=== PATIENT | female | born 2000 | race Caucasian/White ===

== ENCOUNTER 2022-04-27 20:02 | Inpatient (IN) ==
[2022-04-27] MEDS ORDERED: ACETAMINOPHEN 500 MG TAB ONE (20:16)
[2022-04-27] MEDS ORDERED: ACETAMINOPHEN 500 MG TAB PO STA (20:20)
[2022-04-27] MEDS ORDERED: KETOROLAC TROMETHAMINE 15 MG/ML VIAL IV STA (22:51)
[2022-04-27] MEDS ORDERED: SODIUM CHLORIDE 0.9% 1000ML 2,000 ML IV ONE (22:51)
[2022-04-27] MEDS ORDERED: CEFEPIME 2,000 MG/20 ML VIAL IV STA (22:53)
[2022-04-27 22:55] LABS: Basophils # (auto) 0.05 K/uL (0-0.2); Basophils % (auto) 0.4 %; Hematocrit (blood only) 41.6 % (34.1-44.9); Immature Granulocytes # (auto) 0.04 K/uL (0.00-0.02); Immature Granulocytes % (auto) 0.3 %; Lymphocytes # (auto) 2.02 K/uL (1.2-3.4); Lymphocytes % (auto) 16.6 %; Mean Corpuscular Hgb Conc 33.7 g/dL (32.0-36.0); Mean Corpuscular Volume 92.2 fL (80.0-100.0); Mean Platelet Volume 9.7 fL (9.4-12.3); Monocytes # (auto) 1.04 K/uL (0.24-0.82); Monocytes % (auto) 8.6 %; Neutrophils # (auto) 9.01 K/uL (1.4-6.5); Neutrophils % (auto) 74.1 %; Platelet Count 244 K/uL (130-400); RDW Coefficient of Variation 12.4 % (11.5-14.5); Red Blood Count 4.51 M/uL (3.93-5.22); White Blood Count 12.16 K/ul (4.8-10.8)
[2022-04-27 23:13] LABS: Albumin Globulin Ratio 1.4 (0.9-2); Albumin Level 4.6 gm/dl (3.4-5.0); BUN Creatinine Ratio 13.7 (10-20); Calcium 9.2 mg/dl (8.5-10.1); Est GFR (African American) 136.5 ml/min; Est GFR (Non-African American) 117.7 ml/min; Globulin 3.2 gm/dl (2.5-4.0); Potassium 3.5 mmol/L (3.5-5.1); Total Protein 7.8 gm/dl (6.0-8.3)
[2022-04-27] MEDS ORDERED: DAPTOmycin 300 MG in SYRINGE 0 ML IV SCH (23:15)
[2022-04-27] MEDS ORDERED: metroNIDAZOLE 500 MG/100 ML BAG IV STA (23:32)
[2022-04-28] MEDS ORDERED: OPTIRAY 320 100ml IV ONE (00:15)
--- NOTE | 2022-04-28 00:24 | CT Scan Report ---
CT SCAN OF THE CHEST WITH IV CONTRAST CLINICAL HISTORY: Cellulitis of the left breast. COMPARISON STUDY: Chest x-ray dated 11/10/2006. TECHNIQUE: Following the IV administration of 94 cc of Optiray 320, CT scan of the thorax was perform ed from the thoracic inlet to the upper abdomen. Images are reviewed in the axial, sagittal, and aracelis nal planes. IV contrast was administered without complication. A dose lowering technique was utilize d adhering to the principles of ALARA. CT DOSE: 171.47 mGy.cm FINDINGS: Thyroid: Imaged portions of the thyroid gland are normal in size and attenuation. Thoracic aorta: The thoracic aorta is normal in caliber and demonstrates standard 3-vessel arch anato my. No dissection is seen. Pulmonary vasculature: The pulmonary trunk is normal in caliber. There are no filling defects identif ied in the central pulmonary vessels to indicate pulmonary embolus. Note that this examination was no t protocoled for evaluation of the pulmonary arteries. Heart: The heart is normal in size and without pericardial effusion. Lungs and pleural spaces: The lungs and pleural spaces are clear noting dependent atelectasis. The tr achea and central airways are patent. Mediastinum: There is no mediastinal lymphadenopathy. Katlin: Clear. Axillae: Prominent left axillary lymph nodes measure up to 1.7 cm in length. These are likely reactiv e. No right axillary adenopathy is seen. Upper abdomen: Hepatic periportal edema is noted and likely related to hydration status. Partially vi sualized upper abdominal viscera is otherwise within normal limits. Skeletal structures: No lytic or blastic bony lesions are seen. An os acromiale he is incidentally no tori on the left. Soft tissues: There is dermal thickening and subcutaneous inflammation/fluid seen in the upper left b reast typical for cellulitis. No organized/drainable fluid collection is seen within the abscess. IMPRESSION: 1. Findings are consistent with cellulitis of the left breast as per the clinical history. Clinical f ollow-up to resolution is recommended. If this fails to resolve over a reasonable time course conside r outpatient follow-up at the diagnostic breast center for further evaluation. 2. No organized/drainable fluid collection is seen to indicate abscess. 3. Mildly enlarged left axillary lymph nodes are likely reactive. 4. The lungs are clear. ACT 112: Negative or not required by law. Electronically signed by: Jonnie Sesay M.D. 04/28/2022 12:22 AM
[2022-04-28 00:25] LABS: Pregnancy Test, Serum Negative (Negative)
[2022-04-28 00:44] LABS: Procalcitonin 0.06 ng/ml (0-0.5)
--- NOTE | 2022-04-28 01:39 | Emergency Department Note ---
Impression & Plan Cellulitis of left breast, Sepsis, Fever ED Provider Note NAME: JUVENTINO HOLLOWAY AGE: 21 SEX: F ARRIVES VIA: Walk-In INFORMANT: Patient ED PROVIDER(S): Sunny Darling MD CHIEF COMPLAINT: Fevers, skin infection PLAN: Disposition: Admit MEDICAL DECISION MAKING: The patient is a pleasant 21-year-old woman, previously healthy who presents to the emergency department for evaluation of worsening redness, pain and the development of fevers and body aches after being seen in the emergency department yesterday for cellulitis of her left breast treated with doxycycline. Patient reports she initially had some soreness and a "pimple" in this region on Saturday and then [place] where thereafter the redness developed and pain ensued. She denies nausea, vomiting. She reports a slight sore throat but denies any cough. She denies any chest pain or shortness of breath. Any prior history of skin infections. On arrival the patient is uncomfortable, febrile to 38.9, heart rate in the 90s and vital signs otherwise stable. She appears clinically dry. She has a 10 cm region of erythema, induration, warmth and tenderness of the superior lateral aspect of the left breast with scant central crusting without overt purulent drainage no overt underlying fluctuance. There is no tender axillary lymphadenopathy. Limited bedside ultrasound was performed per procedure note below and did not demonstrate overt fluid collection. WBC 12K, nonspecific. H/H and platelets within normal limits. Chemistry without metabolic acidosis. Lactic acid 0.8, within normal limits. LFTs without significant abnormality. Procalcitonin is not significantly elevated. COVID-19, RNA, ESPERANZA test was negative. CT of the chest was performed to exclude deep infection and demonstrates infection limited to the breast. The patient was treated with broad-spectrum antibiotics given the rapid worsening of her infection with systemic involvement of fevers concern for polymicrobial infection and sepsis. Given her worsening symptoms the patient and her mother at the bedside agree with plan for admission for further management. Case was discussed with Dr. Gutiérrez, [facility] hospitalist, who will evaluate the patient for admission. Triage Nursing notes reviewed and agree them. Prior medical records reviewed Vital Signs: reviewed and remarkable for fever. Differential diagnosis: Sepsis, UTI, pneumonia, metabolic, electrolyte abnormalities, cardiac sources, intracerebral event, toxicologic, neurologic, as well as other pathologies. ER treatment provided: See below. Diagnostics interpreted by me: Cardiac Monitoring: An order for continuous cardiac monitoring was placed and demonstrated normal sinus rhythm, 95 bpm, no ectopy. Laboratory studies: See below Imaging studies: See below Consultation(s): Case was discussed with Dr. Gutiérrez, [facility] hospitalist, who will evaluate the patient for admission. HPI: The patient is a pleasant 21-year-old woman, previously healthy who presents to the emergency department for evaluation of worsening redness, pain and the development of fevers and body aches after being seen in the emergency department yesterday for cellulitis of her left breast treated with doxycycline. Patient reports she initially had some soreness and a "pimple" in this region on Saturday and then [place] on [place] where thereafter the redness developed and pain ensued. She denies nausea, vomiting. She reports a slight sore throat but denies any cough. She denies any chest pain or shortness of breath. Any prior history of skin infections. ROS: See above HPI for pertinent positives & negatives. A total of 10 systems reviewed and were otherwise negative. VITALS:See Below PHYSICAL EXAMINATION: GENERAL: Awake, alert, uncomfortable-appearing, in no distress HENT: Normocephalic, atraumatic. Oropharynx with dry mucous membranes and otherwise unremarkable. EYES: Normal conjunctiva. Sclera non-icteric. NECK: Supple. No nuchal rigidity. FROM. No JVD. RESPIRATORY: Clear to auscultation. CARDIAC: Regular rate, normal rhythm. Extremities warm and well perfused. Pulses equal. ABDOMEN: Soft, non-distended. No tenderness to palpation. No rebound or guar ding. No masses. RECTAL: Deferred. MUSCULOSKELETAL: Chest examination reveals no tenderness. The back is symmetrical on inspection without obvious abnormality. There is no CVA tenderness to palpation. No joint edema. LOWER EXTREMITIES: Calves are equal size bilaterally and non-tender. No edema. No discoloration. NEURO: Normal sensorium. No sensory or motor deficits noted. SKIN: 10 cm region of erythema, induration, warmth and tenderness of the superior lateral aspect of the left breast with scant central crusting without overt purulent drainage no overt underlying fluctuance. There is no tender axillary lymphadenopathy. No jaundice noted. ED COURSE: Procedures: Limited Point of Care Soft Tissue Ultrasound performed by me: Indication: Cellulitis, fluctuance. Findings: Limited soft tissue ultrasound with long and short axis views obtained. There is no overt fluid collection identified. Cobblestoning is noted c/w cellulitis. Impression: Cellulitis, no abscess. ---- Critical Care: I have personally spent greater than 45 minutes of critical care time in the direct management of this patient. This includes bedside care, interpretation of diagnostic studies, and testing, discussion with consultants, patient, and family members, and other required patient management activities. This 45 minutes is in excess of all separately billable procedures. Sunny Darling MD Past Med/Surg History Medical History No significant past medical history Surgical History No significant past surgical history Social History Smoking Status: Current some day smoker Tobacco Type: Cigarettes Preferred Language: Samoan marital status: Single current occupational status: employed Feels Safe at Home: Yes Allergies Allergies Allergy/AdvReac Type Severity Reaction Status Date / Time Penicillins AdvReac Intermediate ELEVATED Verified 04/27/22 23:26 HEART RATE PER MOTHER Home Meds Previous Rx's Medication Instructions Recorded doxycycline hyclate 100 mg capsule 100 mg PO BID 10 days #20 caps 04/27/22 Results & Data (ED) Vital Signs Vital Signs - 24 hr 04/27/22 20:14 04/27/22 23:17 04/28/22 00:18 Temperature 38.9 C H Temperature Source Temporal Artery Scan Pulse Rate 107 H Pulse Rate [Radial] 87 95 H Pulse Rhythm [Radial] Regular Regular Pulse Strength [Radial] Normal Normal Respiratory Rate 18 16 16 Respiratory Effort / Characteristics Non-Labored Spontaneous Non-Labored Spontaneous Respiratory Depth Normal Normal Respiratory Pattern Regular Regular Blood Pressure 131/76 Blood Pressure [Left Arm] 111/75 124/81 Blood Pressure Mean 94 Blood Pressure Mean [Left Arm] 87 95 Blood Pressure Position Sitting Blood Pressure Position [Left Arm] Lying Sitting Pulse Oximetry 98 100 97 Oxygen Delivery Method Room Air Room Air Room Air Sepsis Recent Fever Within 48 Hours Yes Sepsis New/Unexplained Change in Mental Status N/A Sepsis Action Taken by Nursing No Action Required Laboratory Data Attestation: I reviewed the patient's lab results. Result diagrams: 04/27/22 22:45 04/27/22 22:45 Lab Results 04/27/22 04/27/22 04/27/22 Range/Units 22:45 22:45 22:45 WBC 12.16 H (4.8-10.8) K/ul RBC 4.51 (3.93-5.22) M/uL Hgb 14.0 (12.0-16.0) g/dl Hct 41.6 (34.1-44.9) % MCV 92.2 (80.0-100.0) fL MCH 31.0 (25.0-34.0) pg MCHC 33.7 (32.0-36.0) g/dL RDW Std Deviation 42.0 (36.4-46.3) fL RDW Coeff of Krish 12.4 (11.5-14.5) % Plt Count 244 (130-400) K/uL MPV 9.7 (9.4-12.3) fL Immature Gran % (Auto) 0.3 % Neut % (Auto) 74.1 % Lymph % (Auto) 16.6 % Todd % (Auto) 8.6 % Eos % (Auto) 0.0 % Baso % (Auto) 0.4 % Neut # (Auto) 9.01 H (1.4-6.5) K/uL Lymph # (Auto) 2.02 (1.2-3.4) K/uL Todd # (Auto) 1.04 H (0.24-0.82) K/uL Eos # (Auto) 0.00 (0-0.50) K/uL Baso # (Auto) 0.05 (0-0.2) K/uL Immature Gran # (Auto) 0.04 H (0.00-0.02) K/uL Sodium 136 (136-145) mmol/L Potassium 3.5 (3.5-5.1) mmol/L Chloride 101 (98-107) mmol/L Carbon Dioxide 25 (21-32) mmol/L Anion Gap 10 (3-11) BUN 10 (6-23) mg/dl Creatinine 0.73 (0.6-1.2) mg/dl Est Cr Clr Drug Dosing 92.0 ml/min Est GFR ( Amer) 136.5 ml/min Est GFR (Non-Af Amer) 117.7 ml/min BUN/Creatinine Ratio 13.7 (10-20) Glucose 94 (70-99(Fasting)) mg/dl Lactate 0.8 (0.4-2.0) mmol/L Calcium 9.2 (8.5-10.1) mg/dl Total Bilirubin 1.0 (0.2-1.0) mg/dl AST 27 (13-39) U/L ALT 15 (7-52) U/L Alkaline Phosphatase 87 (34-104) U/L Total Protein 7.8 (6.0-8.3) gm/dl Albumin 4.6 (3.4-5.0) gm/dl Globulin 3.2 (2.5-4.0) gm/dl Albumin/Globulin Ratio 1.4 (0.9-2) Procalcitonin (0-0.5) ng/ml HCG, Qual (Negative) SARS-CoV-2, RNA, NAAT (NEGATIVE) 04/27/22 04/27/22 Range/Units 22:45 22:45 WBC (4.8-10.8) K/ul RBC (3.93-5.22) M/uL Hgb (12.0-16.0) g/dl Hct (34.1-44.9) % MCV (80.0-100.0) fL MCH (25.0-34.0) pg MCHC (32.0-36.0) g/dL RDW Std Deviation (36.4-46.3) fL RDW Coeff of Krish (11.5-14.5) % Plt Count (130-400) K/uL MPV (9.4-12.3) fL Immature Gran % (Auto) % Neut % (Auto) % Lymph % (Auto) % Todd % (Auto) % Eos % (Auto) % Baso % (Auto) % Neut # (Auto) (1.4-6.5) K/uL Lymph # (Auto) (1.2-3.4) K/uL Todd # (Auto) (0.24-0.82) K/uL Eos # (Auto) (0-0.50) K/uL Baso # (Auto) (0-0.2) K/uL Immature Gran # (Auto) (0.00-0.02) K/uL Sodium (136-145) mmol/L Potassium (3.5-5.1) mmol/L Chloride (98-107) mmol/L Carbon Dioxide (21-32) mmol/L Anion Gap (3-11) BUN (6-23) mg/dl Creatinine (0.6-1.2) mg/dl Est Cr Clr Drug Dosing ml/min Est GFR ( Amer) ml/min Est GFR (Non-Af Amer) ml/min BUN/Creatinine Ratio (10-20) Glucose (70-99(Fasting)) mg/dl Lactate (0.4-2.0) mmol/L Calcium (8.5-10.1) mg/dl Total Bilirubin (0.2-1.0) mg/dl AST (13-39) U/L ALT (7-52) U/L Alkaline Phosphatase (34-104) U/L Total Protein (6.0-8.3) gm/dl Albumin (3.4-5.0) gm/dl Globulin (2.5-4.0) gm/dl Albumin/Globulin Ratio (0.9-2) Procalcitonin 0.06 (0-0.5) ng/ml HCG, Qual Negative (Negative) SARS-CoV-2, RNA, NAAT NEGATIVE (NEGATIVE) Administered Medications Discontinued Medications Acetaminophen (Acetaminophen 500 Mg Tab) Confirm Administered Dose 1,000 mg .ROUTE .STK-MED ONE Stop: 04/27/22 20:17 Last Admin: 04/27/22 20:23 Dose: Not Given Documented By: NIGEL Acetaminophen (Acetaminophen 500 Mg Tab) 1,000 mg PO NOW STA Stop: 04/27/22 20:21 Last Admin: 04/27/22 20:23 Dose: 1,000 mg Documented By: NIGEL Sodium Chloride (Nss 1000ml) 2,000 mls @ 999 mls/hr IV .Q2H1M ONE Stop: 04/28/22 00:51 Last Infusion: 04/28/22 01:49 Dose: 0 mls/hr Documented By: Admin: 04/27/22 23:13 Dose: 999 mls/hr Documented By: PARVEEN Cefepime HCl (Maxipime) 2,000 mg in 20 mls @ 5 mls/min IV NOW STA; Protocol Stop: 04/27/22 22:56 Last Admin: 04/27/22 23:13 Dose: 5 mls/min Documented By: PARVEEN Daptomycin 300 mg/ Syringe 6 mls @ 3 mls/min IV Q24H HEATHER; Protocol Stop: 04/29/22 23:14 Last Admin: 04/27/22 23:49 Dose: 3 mls/min Documented By: PARVEEN Metronidazole (Flagyl) 500 mg in 100 mls @ 100 mls/hr IV NOW STA Stop: 04/28/22 00:31 Last Infusion: 04/28/22 02:43 Dose: 0 mls/hr Documented By: Admin: 04/28/22 01:21 Dose: 100 mls/hr Documented By: PARVEEN Ioversol (Optiray 320 100ml) 94 ml IV ONCE ONE Stop: 04/28/22 00:16 Last Admin: 04/28/22 00:15 Dose: 94 ml Documented By: SHAHAB Ketorolac Tromethamine (Ketorolac Tromethamine 15 Mg/Ml Vial) 15 mg IV NOW STA Stop: 04/27/22 22:52 Last Admin: 04/27/22 23:13 Dose: 15 mg Documented By: PARVEEN Imaging Data Radiologist's Impression: Chest CT 04/27/22 23:30 CT SCAN OF THE CHEST WITH IV CONTRAST CLINICAL HISTORY: Cellulitis of the left breast. COMPARISON STUDY: Chest x-ray dated 11/10/2006. TECHNIQUE: Following the IV administration of 94 cc of Optiray 320, CT scan of the thorax was performed from the thoracic inlet to the upper abdomen. Images are reviewed in the axial, sagittal, and coronal planes. IV contrast was administered without complication. A dose lowering technique was utilized adhering to the principles of ALARA. CT DOSE: 171.47 mGy.cm FINDINGS: Thyroid: Imaged portions of the thyroid gland are normal in size and attenuation. Thoracic aorta: The thoracic aorta is normal in caliber and demonstrates standard 3-vessel arch anatomy. No dissection is seen. Pulmonary vasculature: The pulmonary trunk is normal in caliber. There are no filling defects identified in the central pulmonary vessels to indicate pulmonary embolus. Note that this examination was not protocoled for evaluation of the pulmonary arteries. Heart: The heart is normal in size and without pericardial effusion. Lungs and pleural spaces: The lungs and pleural spaces are clear noting dependent atelectasis. The trachea and central airways are patent. Mediastinum: There is no mediastinal lymphadenopathy. Katlin: Clear. Axillae: Prominent left axillary lymph nodes measure up to 1.7 cm in length. These are likely reactive. No right axillary adenopathy is seen. Upper abdomen: Hepatic periportal edema is noted and likely related to hydration status. Partially visualized upper abdominal viscera is otherwise within normal limits. Skeletal structures: No lytic or blastic bony lesions are seen. An os acromiale he is incidentally noted on the left. Soft tissues: There is dermal thickening and subcutaneous inflammation/fluid seen in the upper left breast typical for cellulitis. No organized/drainable fluid collection is seen within the abscess. IMPRESSION: 1. Findings are consistent with cellulitis of the left breast as per the clinical history. Clinical follow-up to resolution is recommended. If this fails to resolve over a reasonable time course consider outpatient follow-up at the diagnostic breast center for further evaluation. 2. No organized/drainable fluid collection is seen to indicate abscess. 3. Mildly enlarged left axillary lymph nodes are likely reactive. 4. The lungs are clear. ACT 112: Negative or not required by law. Electronically signed by: Jonnie Sesay M.D. 04/28/2022 12:22 AM Discharge Plan Visit Data Chief Complaint: Infection, Wound Stated Complaint: BITE WITH POSSIBLE INFECTION ED Provider: Sunny Darling Discharge Problem: Cellulitis of left breast, Sepsis, Fever Patient Disposition: Admitted As Inpatient Discharge Instructions Interventions: ED Discharge Assessment Last Done: 04/28/22 04:38
[2022-04-28] MEDS ORDERED: ACETAMINOPHEN 325 MG TAB PO PRN (05:09)
[2022-04-28] MEDS ORDERED: ONDANSETRON INJ 2 MG/ML 2 ML VIAL IV PRN (05:09)
[2022-04-28] MEDS ORDERED: KETOROLAC TROMETHAMINE 15 MG/ML VIAL IV PRN (05:09)
[2022-04-28] MEDS ORDERED: SODIUM CHLORIDE 0.45 % 1,000 ML IV SCH (05:09)
[2022-04-28] MEDS ORDERED: POLYETHYLENE (MIRALAX) 17 GM PACK PO PRN (05:09)
[2022-04-28] MEDS ORDERED: cefTRIAXone SODIUM 2,000 MG in DEXTROSE 5% 50 ML IV SCH (06:00)
[2022-04-28] MEDS: DOXYCYCLINE HYCLATE 100 MG in DEXTROSE 5% 100 ML IV SCH ×2 (06:06→18:14)
--- NOTE | 2022-04-28 07:17 | History and Physical Report ---
DATE OF ADMISSION: 04/28/2022. CHIEF COMPLAINT: Left chest wall infection. HISTORY OF PRESENT ILLNESS: A 21-year-old female with past medical history significant for depression, generalized anxiety disorder as per Epic, who presents with left chest wall infection. [place]. Yesterday, she came to the ER with left upper chest wall infection and discharged on doxycycline. After going home, she was having fever, pain got worse, and symptoms seemed to be getting worse, so she came back. She was spiking temperatures at 38.9 in the ER and white count was 12. In the ER, she was treated with cefepime, daptomycin, and Flagyl. Currently, resting comfortably and hemodynamically stable. Denies any headache. She has whole body aches, feeling weak. Denies any headache. No blurred visions, no runny nose, no sore throat, no cough, no shortness of breath, no nausea, no abdominal pain. Normal bowel and bladder movements. No rash anywhere else.Patient and her mother says initially it started as blisters. ALLERGIES: PENICILLINS. PAST MEDICAL HISTORY: As mentioned above. PAST SURGICAL HISTORY: EGDs, EGD with biopsy, tonsillectomy and adenoidectomy. MEDICATIONS: The patient is currently taking doxycycline 100 mg p.o. b.i.d. FAMILY HISTORY: Significant for father has cholecystectomy, GERD, hypertension; mother has lactose intolerance, gallbladder removed; maternal grandmother had GERD; paternal grandfather had GERD; paternal grandmother has diabetes. SOCIAL HISTORY: Single. No smoking, no alcohol. Smokes marijuana as per [facility]. REVIEW OF SYSTEMS: As per HPI. Rest of the review of systems is negative. PHYSICAL EXAMINATION: GENERAL: The patient is of moderate build, not in acute distress. VITAL SIGNS: Temperature 38.9, pulse 95, respiratory rate 16, blood pressure 124/81, oxygen 97% on room air. HEENT: Pupils equal, round, and reactive to light. Oral mucosa moist. NECK: No JVD, no neck masses. CARDIOVASCULAR: S1 and S2 heard. Regular rate and rhythm. No murmur, no gallop. RESPIRATORY: Normal AP diameter. No accessory muscle use. No wheezing, no crackles. ABDOMEN: Soft, bowel sounds present, nontender, no distention. CENTRAL NERVOUS SYSTEM: Cranial nerves II-XII grossly intact, nonfocal. EXTREMITIES: No edema, no erythema. SKIN: Erythematous some crusted lesions seen in the left upper chest just above breast and close to axilla region. LABORATORY DATA: WBC 12.1, hemoglobin 14, hematocrit 41.6, platelets 244. Sodium 136, potassium 3.5, chloride 101, bicarbonate 25, BUN 10, creatinine 0.7, serum glucose 94, lactate 0.8, calcium 9.2, total bilirubin 1, AST 27, ALT 15, alkaline phosphatase 87. Procalcitonin 0.06. HCG qualitative is negative. SARS-CoV-2 rapid test negative. IMAGING DATA: CT of the chest with IV contrast shows findings consistent with cellulitis of the left breast, clinical followup to resolution is recommended. If this fails to resolve over a reasonable time course, will consider outpatient followup at [facility] for further evaluation. No organized drainable fluid collection is seen to indicate abscess. Mildly enlarged left axillary lymph nodes, are likely reactive. Lungs are clear. ASSESSMENT AND PLAN: This is a 21-year-old female who presents with left upper chest wall cellulitis. 1. Left upper chest wall cellulitis: There is no drainable abscess seen on ct scan. Will continue with rocephin and doxycycline. Follow the response. If needed can add anaerobic coverage. Will monitor in the medical floor. Gentle fluids, IV Toradol p.r.n. for pain. 2. Deep venous thrombosis prophylaxis: Sequential compression devices. Expect to discharge home and follow with family doctor. Job ID: [id number] MTDD
[2022-04-28 07:24] LABS: Basophils # (auto) 0.03 K/uL (0-0.2); Basophils % (auto) 0.3 %; Eosinophils # (auto) 0.02 K/uL (0-0.50); Eosinophils % (auto) 0.2 %; Hematocrit (blood only) 36.3 % (34.1-44.9); Hemoglobin 12.2 g/dl (12.0-16.0); Immature Granulocytes # (auto) 0.04 K/uL (0.00-0.02); Immature Granulocytes % (auto) 0.4 %; Lymphocytes # (auto) 1.61 K/uL (1.2-3.4); Lymphocytes % (auto) 16.9 %; Mean Corpuscular Hemoglobin 30.7 pg (25.0-34.0); Mean Corpuscular Hgb Conc 33.6 g/dL (32.0-36.0); Mean Corpuscular Volume 91.2 fL (80.0-100.0); Mean Platelet Volume 9.8 fL (9.4-12.3); Monocytes # (auto) 0.78 K/uL (0.24-0.82); Monocytes % (auto) 8.2 %; Neutrophils # (auto) 7.04 K/uL (1.4-6.5); Platelet Count 185 K/uL (130-400); RDW Coefficient of Variation 12.6 % (11.5-14.5); RDW Standard Deviation 41.6 fL (36.4-46.3); Red Blood Count 3.98 M/uL (3.93-5.22); White Blood Count 9.52 K/ul (4.8-10.8)
[2022-04-28 07:45] LABS: Anion Gap 6 (3-11); BUN Creatinine Ratio 14.3 (10-20); Blood Urea Nitrogen 8 mg/dl (6-23); Calcium 7.9 mg/dl (8.5-10.1); Carbon Dioxide 24 mmol/L (21-32); Chloride 107 mmol/L (98-107); Creatinine Clr Calc Pharmacy 119.9 ml/min; Est GFR (African American) > 150.0 ml/min; Est GFR (Non-African American) 133.3 ml/min; Glucose 96 mg/dl (70-99(Fasting)); Magnesium 1.9 mg/dl (1.7-2.4); Potassium 3.4 mmol/L (3.5-5.1); Sodium 137 mmol/L (136-145)
[2022-04-28] MEDS ORDERED: POTASSIUM CHLORIDE CRTAB 20 MEQ TABCR PO STA (08:45)
[2022-04-28] MEDS: ADVANCED PROBIOTIC 1250 MG CAPSULE PO SCH ×2 (09:06→22:16)
[2022-04-28] MEDS: PIPERACILLIN/TAZOBACTAM 3.375 GM in DEXTROSE 5% 100 ML IV SCH ×2 (15:06→22:16)
[2022-04-28 15:47] LABS: Lyme Ab IgG w/WB Rflx Negative (Negative)
[2022-04-28 15:48] LABS: Lyme Ab IgM w/WB Rflx Equivocal (Negative)
[2022-04-28] MEDS ORDERED: bisacodyL 5 MG TABEC PO PRN (15:54)
--- NOTE | 2022-04-28 16:23 | Communication Note ---
Date of Service: April 28, 2022 Patient was seen and examined in her room 306. Chart reviewed. Mom was present at bedside. Will discontinue ceftriaxone and start zosyn. Send for tick borne panel and continue doxycyline pending studies. Likely can de-escalate to oral antibiotics tomorrow and discharge home.
[2022-04-29] MEDS: DOXYCYCLINE HYCLATE 100 MG in DEXTROSE 5% 100 ML IV SCH (05:46)
[2022-04-29 06:58] LABS: Anion Gap 7 (3-11); BUN Creatinine Ratio 13.8 (10-20); Blood Urea Nitrogen 8 mg/dl (6-23); Carbon Dioxide 30 mmol/L (21-32); Chloride 101 mmol/L (98-107); Creatinine Clr Calc Pharmacy 115.8 ml/min; Est GFR (African American) > 150.0 ml/min; Est GFR (Non-African American) 131.8 ml/min; Glucose 112 mg/dl (70-99(Fasting)); Potassium 3.7 mmol/L (3.5-5.1); Sodium 138 mmol/L (136-145)
[2022-04-29 06:59] LABS: Basophils # (auto) 0.03 K/uL (0-0.2); Basophils % (auto) 0.4 %; Eosinophils # (auto) 0.11 K/uL (0-0.50); Eosinophils % (auto) 1.5 %; Hematocrit (blood only) 38.8 % (34.1-44.9); Immature Granulocytes # (auto) 0.02 K/uL (0.00-0.02); Immature Granulocytes % (auto) 0.3 %; Lymphocytes # (auto) 1.97 K/uL (1.2-3.4); Lymphocytes % (auto) 27.4 %; Mean Corpuscular Hemoglobin 30.8 pg (25.0-34.0); Mean Corpuscular Hgb Conc 33.5 g/dL (32.0-36.0); Mean Corpuscular Volume 91.9 fL (80.0-100.0); Mean Platelet Volume 9.9 fL (9.4-12.3); Monocytes % (auto) 12.5 %; Neutrophils # (auto) 4.16 K/uL (1.4-6.5); Neutrophils % (auto) 57.9 %; Platelet Count 235 K/uL (130-400); RDW Coefficient of Variation 12.5 % (11.5-14.5); RDW Standard Deviation 42.3 fL (36.4-46.3); Red Blood Count 4.22 M/uL (3.93-5.22); White Blood Count 7.19 K/ul (4.8-10.8)
[2022-04-29] MEDS: PIPERACILLIN/TAZOBACTAM 3.375 GM in DEXTROSE 5% 100 ML IV SCH (07:57)
[2022-04-29] MEDS: ADVANCED PROBIOTIC 1250 MG CAPSULE PO SCH (07:58)
--- NOTE | 2022-04-29 12:19 | Discharge Summary ---
Date of Service April 29, 2022 Admission HPI Per Admitting Provider A 21-year-old female with past medical history significant for depression, generalized anxiety disorder as per [facility], who presents with left chest wall infection. The patient was swimming in the river on Saturday. Yesterday, she came to the ER with left upper chest wall infection and discharged on doxycycline. After going home, she was having fever, pain got worse, and symptoms seemed to be getting worse, so she came back. She was spiking temperatures at 38.9 in the ER and white count was 12. In the ER, she was treated with cefepime, daptomycin, and Flagyl. Currently, resting comfortably and hemodynamically stable. Denies any headache. She has whole body aches, feeling weak. Denies any headache. No blurred visions, no runny nose, no sore throat, no cough, no shortness of breath, no nausea, no abdominal pain. Normal bowel and bladder movements. No rash anywhere else.Patient and her mother says initially it started as blisters. Principal Diagnosis Left chest wall cellulitis Possible lyme disease Sepsis Discharge Exam Feels well. No fever in past 36 hours. Left chest wall redness is receding. Breathing comfortably on room air. Discharge Data Allergies Allergy/AdvReac Type Severity Reaction Status Date / Time Penicillins AdvReac Intermediate ELEVATED Verified 04/27/22 23:26 HEART RATE PER MOTHER Consultations 04/28/22 00:35 ED Decision to Admit Stat Ordered Studies 04/27/22 23:00 US point of care ultrasound Stat 04/27/22 23:30 CT chest diagnostic w con Stat Hospital Course (1) Cellulitis: (2) Sepsis: Plan Ms Malinda Swan is a 21 year old female with no significant PMHx presents to the ER 04/28 with worsening left chest wall redness. She reports first noticing a "bump" on that area about 1 week prior then went swimming [place] and subsequently developed redness. She went to the ER 04/27 and was prescribed doxycyline but with her worsening redness, fever/chills she returned to the ER 04/28 and was admitted. In the ER, she received Daptomycin, Cefepime then was continued on Ceftriaxone and Doxcycline briefly but was switched to Zosyn and Doxycyline. With parenteral antibiotics, her sepsis resolved and her cellulitis improved markedly. Her lyme screen was equivocal so a Western blot was sent which is pending at discharge. Her blood smear was negative for anaplasma and babesia but PCR are pending at discharge. She was discharged on Augmentin x 7 days for cellulitis. And Doxycycline x 14 days for empiric coverage of lyme disease pending Western Blot studies. She and her mother were instructed to follow up with her PCP within the week for results of her lyme western blot and remaining tick borne panel which are pending at discharge. Total Time Total Time Spent Total Time Spent (In Minutes): 38 Discharge Plan Discharge Items Patient Disposition: Home - Self-Care Reason For Visit: LEFT CHEST WALL INFECTION Discharge Diagnosis: Left chest wall cellulitis Possible lyme disease Sepsis Condition on Discharge: Good Activity: Resume your previous activity Non-emergency contact: Primary Care Provider Call non-emergency contact if: you have any medication questions and you have a fever Follow-up/Referrals: Jazmin Ruiz MD [Primary Care Provider] - Diet: Regular Addtl Attending Provider Instructions: Keep the affected area clean and dry. You may apply gauze over the area as needed. No bath, swimming or soaking in water until your skin is completely healed. Showers are ok. You can wash the area with warm water and mild soap. You will go home on Augmentin 875/125mg twice a day for 7 days for your skin infection. You will be on Doxycyline 100mg twice a day for at least 14 days for presumed lyme disease. Please follow up with your primary care doctor in 1 week to monitor your skin infection and for the results of your Lyme Western Blot and Remaining Tick Borne panel (PCR) which are PENDING at time of discharge--> if your remaining Tick Borne Panel and Lyme Western Blot comes back negative, you may stop the doxycyline. Pending Studies at Discharge: Yes Studies:: Lyme Western Blot Tick Borne Panel Stand-Alone Forms: My EyeEm, Smoking Cessation Medications and DC Order Prescriptions: New Advanced Probiotic 625 mg (10 billion cell) Capsule 1 cap PO BID 14 Days Qty: 28 0RF amoxicillin-pot clavulanate 875-125 mg tablet 1 tab PO BID 7 Days Qty: 14 0RF Continued fluvoxamine 100 mg Capsule,Extended Release 24hr 100 mg PO HS Rx Instructions: was to start and didnt yet doxycycline hyclate 100 mg capsule 100 mg PO BID 14 Days Qty: 28 0RF Rx Instructions: STARTED 04/27/22 Discharge Orders: Discharge Order (Routine); Ordered 04/29/22 Ordered By: Cliff Blunt Admission Data Admit Date/Time: 04/28/22 01:45 Attending Provider: Cliff Blunt Admit Provider: Marv Gutiérrez Primary Care Provider: Jazmin Ruiz Other Providers: Marv Gutiérrez
[2022-05-02 00:12] LABS: 18KDIGG Band NON-REACTIVE; 23KDIGG Band NON-REACTIVE; 23KDIGM Band REACTIVE; 28KDIGG Band NON-REACTIVE; 30KDIGG Band NON-REACTIVE; 39KDIGG Band NON-REACTIVE; 39KDIGM Band NON-REACTIVE; 41KDIGG Band REACTIVE; 41KDIGM Band NON-REACTIVE; 45KDIGG Band NON-REACTIVE; 58KDIGG Band NON-REACTIVE; 66KDIGG Band NON-REACTIVE; 93KDIGG Band NON-REACTIVE; Lyme Antibodies, WB IgG NEGATIVE (NEGATIVE); Lyme Antibodies, WB IgM NEGATIVE (NEGATIVE)
== END 2022-04-29 14:02 | disposition home or self-care (01) | DRG 872 ==
LOC: ED 20:02 → 3E 04-28 01:45
DX: F41.1 Generalized anxiety disorder; A41.9 Sepsis, unspecified organism; L03.313 Cellulitis of chest wall; F32.A Depression, unspecified; Z88.0 Allergy status to penicillin; A69.20 Lyme disease, unspecified

== ENCOUNTER 2023-03-07 17:24 | Inpatient (IN) ==
[~2023-03-07 17:24] MED LIST: GENTAMICIN SULFATE 40 MG/ML 2 ML VIAL IV SCH
[2023-03-07] MEDS ORDERED: MoRPHine SULFATE 10 MG/ML CARP/VIAL ONE (17:29)
[2023-03-07] MEDS ORDERED: ceFAZolin 2000MG 2,000 MG/15 ML SYR IV STA (17:30)
[2023-03-07] MEDS ORDERED: MoRPHine SULFATE 10 MG/ML CARP/VIAL IV STA (17:30)
[2023-03-07] MEDS: fentaNYL citrate PF 100 MCG/2 ML VIAL IV PRN ×3 (17:40→18:20)
--- NOTE | 2023-03-07 17:50 | Emergency Department Note ---
Impression & Plan Tibia and fibula open fracture, right ED Provider Note INFORMANT: Patient ED PROVIDER(S): Tello Wynne DO CHIEF COMPLAINT: PLAN: Disposition: OR Outpatient prescription management: none Discussion with: Dr. Chu orthopedics MEDICAL DECISION MAKING: This is a 22-year-old female who presents to the ED via ambulance. The patient was jumping on a trampoline with her boyfriend. He somehow landed on the right leg causing the open fracture. She has a small portion of the tibia that is protruding through the bone. There is a laceration that is approximately 4 cm in length. Minimal bleeding. No significant lamination noted. She is distally neurovascular intact. The patient has no other injuries. This occurred just prior to arrival. An IV was established by nursing staff here. IV morphine as well as IV fentanyl was administered for pain control. She was also given IV Ancef 2 g. I did speak with Dr. You Chu from orthopedics. He will see the patient in the ED for operative repair. CBC did not show concerning anemia or leukocytosis. No kidney dysfunction or electrolyte abnormality. Triage Nursing notes reviewed. Vital Signs: reviewed Prior /Outside records reviewed: none Differential diagnosis: Soft tissue injury, nerve injury, vascular injury, bony injury. Diagnostics, as interpreted by me: 12 lead ECG: none Cardiac Monitoring ordered: none Medical decision rules: none Imaging studies: X-ray of the right tib-fib: Transverse fracture through the tibia and fibula. Procedures: none. Critical care: none. HPI: See MDM above. PAST MEDICAL HISTORY: See Below PAST SURGICAL HISTORY: See Below SOCIAL HISTORY: See Below HOME MEDICATIONS:See Below ALLERGIES: See Below VITALS: See Below PHYSICAL EXAMINATION: See MDM for positive findings otherwise unremarkable. CONSTITUTIONAL/VITAL SIGNS: Reviewed GENERAL:done as appropriate INTEGUMENTARY: done as appropriate HEAD: done as appropriate EYES: done as appropriate RESPIRATORY: done as appropriate CARDIOVASCULAR:done as appropriate GI/ABDOMEN:done as appropriate EXTREMITIES: done as appropriate NEUROLOGICAL: done as appropriate PSYCHIATRIC:done as appropriate MUSCULOSKELETAL:done as appropriate TRIAGE NURSING DOCUMENTATION REVIEWED. Past Med/Surg History Medical History Fever No significant past medical history Sepsis Surgical History No significant past surgical history Social History Smoking Status: Never smoker Tobacco Type: Cigarettes Hx Alcohol Use: Yes Alcohol type: beer, wine, hard liquor and other Hx Substance Use: No Preferred Language: Georgian Communication Ability: Effective Check Examiner Required: No Beliefs That Will Affect Care: None marital status: Single Current Living Situation: Family current occupational status: employed Feels Safe at Home: Yes Assistive Devices: None Allergies Allergies Allergy/AdvReac Type Severity Reaction Status Date / Time Penicillins AdvReac Intermediate ELEVATED Verified 04/27/22 23:26 HEART RATE PER MOTHER Home Meds Home Medications Medication Instructions Recorded Confirmed No Known Home Medications 12/11/22 12/11/22 Results & Data (ED) Vital Signs Vital Signs - 24 hr 03/07/23 17:44 03/07/23 17:58 Temperature 36.6 C Temperature Source Oral Pulse Rate 97 H Pulse Rate [Right Finger] 89 Respiratory Rate 20 20 Respiratory Effort / Characteristics Non-Labored Non-Labored Respiratory Depth Normal Normal Blood Pressure 114/86 Blood Pressure [Right Arm] 138/84 Blood Pressure Mean 95 Blood Pressure Mean [Right Arm] 102 Pulse Oximetry 99 91 Oxygen Delivery Method Room Air Room Air Sepsis Recent Fever Within 48 Hours No Sepsis New/Unexplained Change in Mental Status N/A Sepsis Action Taken by Nursing No Action Required Laboratory Data 03/07/23 17:29 03/07/23 17:29 Lab Results 03/07/23 03/07/23 Range/Units 17:29 18:00 WBC 10.08 (4.8-10.8) K/ul RBC 4.43 (4.20-5.40) M/uL Hgb 13.5 (12.0-16.0) g/dl Hct 40.0 (37.0-47.0) % MCV 90.3 (80.0-100.0) fL MCH 30.5 (25.0-34.0) pg MCHC 33.8 (32.0-36.0) g/dL RDW Std Deviation 42.0 (36.4-46.3) fL RDW Coeff of Krish 12.9 (11.5-14.5) % Plt Count 321 (130-400) K/uL MPV 10.1 (9.4-12.4) fL Immature Gran % (Auto) 0.4 % Neut % (Auto) 44.1 % Lymph % (Auto) 45.0 % [place] % (Auto) 8.8 % Eos % (Auto) 1.2 % Baso % (Auto) 0.5 % Neut # (Auto) 4.44 (1.40-6.50) K/uL Lymph # (Auto) 4.54 H (1.2-3.4) K/uL [place] # (Auto) 0.89 H (0.11-0.59) K/uL Eos # (Auto) 0.12 (0-0.50) K/uL Baso # (Auto) 0.05 (0-0.2) K/uL Immature Gran # (Auto) 0.04 (0.01-0.20) K/uL SARS-CoV-2, RNA, NAAT NEGATIVE (NEGATIVE) Administered Medications Fentanyl Citrate (Fentanyl Citrate Pf 100 Mcg/2 Ml Vial) 100 mcg IV Q15M PRN PRN Reason: Pain Stop: 03/21/23 17:35 Last Admin: 03/07/23 18:20 Dose: 100 mcg Documented By: Admin: 03/07/23 17:55 Dose: 100 mcg Documented By: Admin: 03/07/23 17:40 Dose: 100 mcg Documented By: ZAID Discontinued Medications Cefazolin Sodium (Ancef 2000mg) 2,000 mg in 15 mls @ 3.75 mls/min IV NOW STA Stop: 03/07/23 17:33 Last Admin: 03/07/23 17:53 Dose: 3.75 mls/min Documented By: ZAID Morphine Sulfate (Morphine Sulfate 10 Mg/Ml Carp/Vial) Confirm Administered Dose 10 mg .ROUTE .STK-MED ONE Stop: 03/07/23 17:30 Last Admin: 03/07/23 17:43 Dose: Not Given Documented By: ZAID Morphine Sulfate (Morphine Sulfate 10 Mg/Ml Carp/Vial) 6 mg IV NOW STA Stop: 03/07/23 17:31 Last Admin: 03/07/23 17:35 Dose: 6 mg Documented By: ZAID Imaging Data Radiologist's Impression: Tibia/Fibula X-Ray 03/07/23 17:30 XR tibia fibula RT 2V CLINICAL HISTORY: Right lower leg fracture. COMPARISON STUDY: None. FINDINGS: Displaced transverse fractures within the mid to distal shafts of the right tibia and fibula. These demonstrate up to 17 mm of anterior displacement. The distal tibial fragment extends to the skin surface anteriorly consistent with an open fracture. IMPRESSION: Displaced transverse fractures within the mid to distal shaft of the right tibia and fibula. The distal tibial fracture extends through the skin surface consistent with an open fracture. ACT 112: Negative or not required by law. Electronically signed by: Kael Siddiqi M.D. 03/07/2023 5:50 PM Discharge Plan Visit Data Chief Complaint: Leg Injury/Pain Stated Complaint: OPEN COMPOUND FX R LEG ED Provider: Tello Wynne Discharge Problem: Tibia and fibula open fracture, right Patient Disposition: Being Evaluated by Surgeon Forms Stand Alone Forms: KOWN Prescriptions Prescriptions: No Action No Known Home Medications Referrals Referrals: PCP,NO [Physician] -
[2023-03-07 18:14] LABS: Basophils # (auto) 0.05 K/uL (0-0.2); Basophils % (auto) 0.5 %; Eosinophils # (auto) 0.12 K/uL (0-0.50); Eosinophils % (auto) 1.2 %; Hemoglobin 13.5 g/dl (12.0-16.0); Immature Granulocytes # (auto) 0.04 K/uL (0.01-0.20); Immature Granulocytes % (auto) 0.4 %; Lymphocytes # (auto) 4.54 K/uL (1.2-3.4); Mean Corpuscular Hemoglobin 30.5 pg (25.0-34.0); Mean Corpuscular Hgb Conc 33.8 g/dL (32.0-36.0); Mean Corpuscular Volume 90.3 fL (80.0-100.0); Mean Platelet Volume 10.1 fL (9.4-12.4); Monocytes # (auto) 0.89 K/uL (0.11-0.59); Monocytes % (auto) 8.8 %; Neutrophils # (auto) 4.44 K/uL (1.40-6.50); Neutrophils % (auto) 44.1 %; Platelet Count 321 K/uL (130-400); RDW Coefficient of Variation 12.9 % (11.5-14.5); Red Blood Count 4.43 M/uL (4.20-5.40); White Blood Count 10.08 K/ul (4.8-10.8)
[2023-03-07 18:24] LABS: BUN Creatinine Ratio 12.5 (10-20); Calcium 8.4 mg/dl (8.6-10.3); Creatinine Clr Calc Pharmacy 62.8 ml/min; Est GFR (African American) 74.3 ml/min; Est GFR (Non-African American) 64.1 ml/min; Potassium 3.6 mmol/L (3.5-5.1)
--- NOTE | 2023-03-07 18:28 | History & Physical Report ---
Date of Service March 07, 2023 Assessment & Plan (1) Tibia and fibula open fracture, right: We discussed treatment option with the patient today. This some that requires urgent treatment. As she is going to go irrigation debridement bit of this open fracture and then an closed IM nailing subsequent to that. The risk meant this procedure explained to the patient with the biggest risk being infection. Other risks include DVT PE infection neurological and vascular bleeding palm pain limb range of motion test stiffness nonunion malunion and need for surgery in the future symptomatic hardware etc. That they understand and desire to proceed informed consent was obtained. History of Present Illness Chief Complaint: . Right open tib-fib fracture Primary Care Provider: Jazmin Ruiz MD . Patient is a 22-year-old female who sustained an injury to her right leg this afternoon. She is on a trampoline with her boyfriend when he bounced up in the air and she came down awkwardly. She had cute onset of pain and deformity to her leg. She was brought to emergency room where she was found to have an open tib-fib fracture. No other injuries. We are consulted for evaluation. Last food was about 3:00 she had some soup and a breakfast bar for lunch and that is it. She did get 2 g of Ancef in the ER. Allergies Allergy/AdvReac Type Severity Reaction Status Date / Time Penicillins AdvReac Intermediate ELEVATED Verified 04/27/22 23:26 HEART RATE PER MOTHER Home Medications Medication Instructions Recorded Confirmed Type No Known Home Medications 12/11/22 12/11/22 History Past Med/Surg History Medical History Fever No significant past medical history Sepsis Surgical History No significant past surgical history Social History Smoking Status: Never smoker Tobacco Type: Cigarettes Hx Alcohol Use: Yes Alcohol type: beer, wine, hard liquor and other Hx Substance Use: No Preferred Language: Filipino Communication Ability: Effective Glass Cutter Hand Required: No Beliefs That Will Affect Care: None marital status: Single Current Living Situation: Family current occupational status: employed Feels Safe at Home: Yes Assistive Devices: None Review of Systems All systems reviewed & are unremarkable except as noted in HPI & below. Physical Exam . Physical examination of the right leg reveals fairly thin soft tissue envelope. She does have an open wound over the anterior medial aspect of her tibia with the distal tibia sticking out of the wound. Some slight malalignment. Very little contamination. The total wound is about 4 cm. She can slightly flex extend her toes. Compartments are soft. She does have a small old abrasion over the front of her patella tendon about 5 mm x 5 mm. Looks clean but open scab. Eyes PERRL, conjunctivae normal, anicteric sclerae Neck trachea midline, no thyromegaly Respiratory normal respiratory effort, lungs clear to auscultation Cardiovascular RRR, no murmur, no edema Gastrointestinal (Abdomen) normal bowel sounds, soft, nontender, no hepatosplenomegaly Results & Data Results & Data Laboratory Results . Diagnostic Findings . X-rays of the right hip reveal a comminuted displaced transverse mid tib-fib fracture with some slight comminution. PG Care Time/CCT Total # of Minutes Spent Total Time Spent with Patient: Total time spent is greater than 50% in coordination of care (as documented) at patient's floor/unit and/or counseling patient: Coding Level of Care Code 45758 INT INP/OBS CARE 3/MIN Diagnoses Tibia and fibula open fracture, right S82.201B; S82.401B
[2023-03-07] MEDS ORDERED: fentaNYL citrate PF 100 MCG/2 ML VIAL ONE (18:29)
[2023-03-07] MEDS ORDERED: MIDAZOLAM HCL 1 MG/ML 2ML VIAL ONE (18:29)
[2023-03-07] MEDS ORDERED: HYDROmorphone INJ 2 MG/ML SYR/VIAL ONE (18:35)
[2023-03-07 18:41] LABS: Pregnancy Test, Serum Negative (Negative)
[2023-03-07] MEDS ORDERED: LIDOCAINE 2% 2 ML VIAL/AMP(20MG/ML) INFIL ONE (18:41)
[2023-03-07] MEDS ORDERED: ROCURONIUM BROMIDE 10 MG/ML 5 ML VIAL IV ONE (18:41)
[2023-03-07] MEDS ORDERED: DEXAMETHASONE SOD INJ 4 MG/ML VIAL ONE ×3 (18:41→21:37)
[2023-03-07] MEDS ORDERED: PROPOFOL IV EMULSION 10 MG/ML 20 ML VIAL IV ONE (18:41)
[2023-03-07] MEDS ORDERED: ONDANSETRON INJ 2 MG/ML 2 ML VIAL ONE ×2 (18:41→21:37)
--- NOTE | 2023-03-07 18:46 | Anesthesiology Consultation ---
Date of Service March 07, 2023 Assessment & Plan Chart Review Chart Review: Acceptable Risk for Surgery and Patient NOT seen in Pre Admission Testing Consults Requested none ASA [id number] Proposed Anesthesia Anesthesia Type: General Risk / Benefits Reviewed With: PT / POA / Parent / Guardian, Accepts Plan and Informed Consent Obtained Additional Notes test is still pending. discussed the risk of loss of or deformities with the patient. this case is still emergent regardless of status, so will not delay expedient surgical repair for results. History Surgery Operation Date: 03/07/23 19:00 Proposed Procedures p Intramedullary Nail Tibia - You Chu MD Height/Weight Height: 5 ft 1 in Weight: 63.6 kg Allergies Allergy/AdvReac Type Severity Reaction Status Date / Time Penicillins AdvReac Intermediate ELEVATED Verified 04/27/22 23:26 HEART RATE PER MOTHER Medications Home Medications Medication Instructions Recorded Confirmed Last Taken No Known Home Medications 12/11/22 12/11/22 Unknown Active Medications Generic Name Dose Route Start Last Admin Trade Name Freq PRN Reason Stop Dose Admin Fentanyl Citrate 100 mcg 03/07/23 17:36 03/07/23 18:20 Fentanyl Citrate Pf 100 Mcg/2 Ml Vial IV 03/21/23 17:35 100 mcg Q15M PRN Administration Pain NPO Date Last Intake of Fluids: 03/07/23 Time Last Intake of Fluids: 15:00 Date Last Intake of Solids: 03/07/23 Time Last Intake of Solids: 15:00 Last Intake of Solids Comment: chicken noodle soup, chex mix. Past Medical History Medical History Fever No significant past medical history Sepsis Exercise / Class Metabolic Activity II 4-5 Yardwork/Stairs/Walk up hill Past Surgical History Surgical History No significant past surgical history Past Anesthesia History No Hx of Anesthesia Complications and No Family Hx of Anesthesia Complications History of PONV No Hx of PONV and No Hx of Motion Sickness Social History Smoking Status: Never smoker tobacco type: e-cigarettes Hx Alcohol Use: Yes Alcohol type: beer, wine, hard liquor and other alcohol intake frequency: holidays/special occasions only Hx Substance Use: No substance use type: does not use Physical Exam Vital Signs Last Vital Signs Temp 37.3 C 05/25/23 18:29 Pulse 114 H 03/07/23 18:29 Resp 20 03/07/23 18:29 BP 144/79 H 03/07/23 18:29 Pulse Ox 93 03/07/23 18:29 O2 Del Method Room Air 03/07/23 18:29 ENMT Mouth: no dentition abnormality Thyromental Distance: > or= 3.5 Finger Breadths Mallampati Class: II Neck normal visual inspection Respiratory normal respiratory effort Auscultation: lungs clear to auscultation bilaterally Cardiovascular Rate/Rhythm: regular rate and regular rhythm Psychiatric Orientation: alert Testing Laboratory Results 03/07/23 17:29 03/07/23 17:29
[2023-03-07] MEDS ORDERED: BUPIVACAINE/EPINEPHRINE 0.5% MPF 1:200,000 30 ML VIAL ONE (19:27)
[2023-03-07] MEDS ORDERED: GENTAMICIN SULFATE 40 MG/ML 2 ML VIAL ONE (19:28)
[2023-03-07] MEDS ORDERED: KETAMINE 50 MG/5 ML SYRINGE ONE (19:32)
[2023-03-07] MEDS ORDERED: GLYCOPYRROLATE 0.2 MG/ML VIAL ONE (21:37)
[2023-03-07] MEDS ORDERED: NEOSTIGMINE METHYLSULFATE 1 MG/ML 10ML VIAL ONE (21:37)
[2023-03-07] MEDS ORDERED: KETOROLAC 30 MG/ML VIAL ONE (21:37)
[2023-03-07] MEDS ORDERED: fentaNYL citrate PF 100 MCG/2 ML VIAL IV PRN (21:50)
[2023-03-07] MEDS ORDERED: PROMETHAZINE HCL 6.25 MG in SODIUM CHLORIDE 0.9% 50 ML IV PRN (21:50)
[2023-03-07] MEDS ORDERED: HYDROmorphone INJ 1 MG/ML SYRINGE ONE (21:50)
[2023-03-07] MEDS ORDERED: ONDANSETRON INJ 2 MG/ML 2 ML VIAL IV PRN ×2 (21:50→23:37)
[2023-03-07] MEDS ORDERED: ePHEDrine sulfate 50 MG/ML AMP IV PRN (21:50)
[2023-03-07] MEDS ORDERED: ATROPINE SULFATE 0.1 MG/ML 10ML SYR IV PRN (21:50)
[2023-03-07] MEDS: HYDROmorphone INJ 2 MG/ML SYR/VIAL IV PRN ×5 (21:55→22:26)
--- NOTE | 2023-03-07 21:55 | Operative Report ---
PG Post Operative Report Pre & Post Diagnosis Operation Date: 03/07/23 19:00 Pre-Op Diagnosis: Right Grade 2 open fracture right tibia Post-Op Diagnosis: Right Grade 2 open fracture right tibia I identified the patient and participated in the time-out.: Yes Procedure Operation Date: 03/07/23 19:00 Actual Procedures p irrigation and debridement of right grade 2 open tib-fib fracture Right Intramedullary Nail Tibia(Right) fracture- You Chu MD Surgeon You Chu MD Paste Mixer Liquid Alex Nix PA-C Estimated Blood Loss 50 Findings Consistent with Post-Op Diagnosis Operative findings of the open tib-fib fracture. No gross contamination. The distal tibia was sticking out of the skin. Specimens None Anesthesia Type General Complications none Disposition Accompanied Patient To Recovery: No Indications Patient is a 22-year-old female who sustained an injury to her right tibia this afternoon jumping on the trampoline. She had cute onset of pain and deformity. She had broken her tibia and it was sticking through the skin. She brought the emergency room. She got IV antibiotics. The patient indicated for surgical management Description of Procedure Operative implants consist of: 1. Synthes 8 mm x 285 mm titanium tibial nail. 2. 4.0 mm interlocking screws x4. 3. 10 mm end cap. The patient was taken to the operating, identified, placed on the operating table supine position but all contractors were properly padded. Patient did receive 2 g of IV Ancef in the emergency room and we gave her 80 mg of IV gentamicin. The right lower extremity was then scrubbed with Hibiclens and then prepped and draped in usual sterile fashion. The incision was extended proximally above about 4 cm to allow exposure and adequate debridement of the ends of the bone. The tourniquet was placed at 300 mmHg to get adequate visualization. I saucerized the skin edges to back to a clean tissue. I then opened the fracture site. We irrigated this extensively with 6 L of pulsatile lavage solution. I curetted into the bones. Once this was cleaned the tourniquet was let down for tourniquet time 7 minutes. Hemostasis assured with electrocautery. The right lower extremity was then reprepped and draped. All drapes were taken down and new drapes placed. Holding set up was used for the IM nailing. A longitudinal incision was made over the medial border the patella tendon. Sharp dissection was carried through subcutaneous tissues down to the extensor mechanism. A medial parapatellar arthrotomy incision was made medial to the patella tendon. Guidewire was then placed just at the apex of the anterior tibia and in line with the IM canal and advanced down the canal under fluoroscopic guidance. This is overreamed with the reamer. The ball-tipped guidewire was placed. The fracture was reduced and held in position and the guidewire was passed. We measured an 8 to an 85 mm nail was selected. We then reamed beginning with a 6 mm reamer. We reamed in half millimeter increments up to a 9. We actually were unable to pass the initial 8 mm before backing off in the reaming. We elect to place an 8 mm nail. A 8 mm nail was placed over the guidewire and tapped in position. The proximal interlocking screws were placed under fluoroscopic guidance. The 10 mm end cap was placed. Using the perfect yuhaaviatam technique the distal interlocking screws were placed. Some final x-rays were obtained. Attention drawn to closing. All wounds irrigated with coconuts of pulsatile lavage solution. I did inject locally with 30 cc of half percent Marcaine with epinephrine. The medial parapatellar arthrotomy incision was closed with 0 Vicryl suture in a [id number] fashion. The subcutaneous tissues of the proximal wound was closed with 2-0 Dexon suture. The skin of all interlocking screws as well as the superior incision were closed with 3-0 nylon suture in simple fashion. I used 2-0 nylon to close the open fracture site. We able to reapproximate this without excessive tension. Once this was complete a sterile dressing was Xeroform, 4 fours, sterile cast padding and a posterior and stirrup splint were applied. Patient then brought out of general anesthesia and transferred to the recovery room in stable condition. Patient tolerated the procedure well and there are no complications. Alex Nix, my physician housekeeping assistant, was present for the entire procedure. His assistance was required for proper patient positioning, prepping and draping, surgical exposure, perform the technical details of the operation, placement of the hardware, closure of the incision sites and placement of the sterile bandage. I attest to the content of the Intraoperative Record and any orders documented therein. Any exceptions are noted below.
[2023-03-07] MEDS ORDERED: HYDROmorphone INJ 0.5 MG/0.5 ML SYR ONE ×4 (22:04→22:25)
--- NOTE | 2023-03-07 22:06 | Anesthesiology Progress Note ---
Date of Service March 07, 2023 Anesthesia Post Procedure Vital Signs Vital Signs: Temp Pulse Pulse Resp BP BP Pulse Ox 03/07/23 18:29 37.3 C 114 H 20 144/79 H 93 03/07/23 18:27 03/07/23 17:58 89 20 138/84 91 03/07/23 17:44 36.6 C 97 H 20 114/86 99 O2 Del Method 03/07/23 18:29 Room Air 03/07/23 18:27 Room Air 03/07/23 17:58 Room Air 03/07/23 17:44 Room Air Pain Intensity Right Lower Leg: Pain Intensity: 7 Transfer of Care Handoff Completed per policy Notes Mental Status: alert / awake / arousable Patient Amnestic to Procedure: Yes Nausea / Vomiting: adequately controlled Pain: adequately controlled Airway Patency, RR, SpO2: stable & adequate BP & HR: stable & adequate Hydration State: stable & adequate Anesthetic Complications: no major complications apparent
[2023-03-07] MEDS ORDERED: ceFAZolin 1000MG 1,000 MG/7.5 ML SYR IV SCH (23:37)
[2023-03-07] MEDS ORDERED: SODIUM CHLORIDE 0.9% 1000ML 1,000 ML IV SCH (23:37)
[2023-03-07] MEDS ORDERED: MAGNESIUM HYDROXIDE SUSP 30 ML UDC PO PRN (23:37)
[2023-03-07] MEDS ORDERED: METOCLOPRAMIDE HCL INJ 5 MG/ML 2 ML VIAL IV PRN (23:37)
[2023-03-07] MEDS ORDERED: diphenhydrAMINE Capsule 25 MG CAP PO PRN (23:37)
[2023-03-07] MEDS ORDERED: ALUMINUM/MAGNESIUM SUSP 30 ML UDC PO PRN (23:37)
[2023-03-07] MEDS ORDERED: bisacodyL 10 MG SUPP PR PRN (23:37)
[2023-03-07] MEDS ORDERED: NALOXONE HCL 0.4 MG/1 ML VIAL/CARP IV PRN (23:37)
[2023-03-07] MEDS ORDERED: GENTAMICIN CONSULT ACTIVE PRN (23:42)
[2023-03-08] MEDS ORDERED: GENTAMICIN SULFATE 300 MG in DEXTROSE 5% 100 ML IV ONE
[2023-03-08] MEDS: ceFAZolin 1000MG 1,000 MG/7.5 ML SYR IV SCH ×3 (03:08→17:03)
[2023-03-08] MEDS: KETOROLAC 30 MG/ML VIAL IV SCH ×4 (03:12→22:03)
[2023-03-08] MEDS: ACETAMINOPHEN 500 MG TAB PO SCH ×4 (03:18→22:03)
[2023-03-08] MEDS: oxyCODONE HCL IR 5 MG TAB (IMMEDIATE RELEASE) PO PRN ×3 (06:39→21:04)
--- NOTE | 2023-03-08 06:50 | Fluoroscopy Report ---
FL tibia/fibula RT 2V CLINICAL HISTORY: Fractures. COMPARISON STUDY: Right tibia and fibula radiographs performed earlier today. FLUOROSCOPY TIME: 89.6 seconds. Ka, r: 6.11 mGy FLUOROSCOPIC IMAGES: 5 FINDINGS: Fluoroscopy was provided during open reduction and internal fixation of the right tibial fr acture with intramedullary titi and proximal distal screws. Tibial fracture alignment has markedly imp roved and is near anatomic. Fibular fracture alignment has also significantly improved. There are no unexpected radiopaque foreign bodies. IMPRESSION: Fluoroscopy provided during irrigation and debridement of right open tib-fib fracture and internal fixation of the right tibial fracture with intramedullary nail. ACT 112: Negative or not required by law. Electronically signed by: Willian Hernández M.D. 03/08/2023 6:48 AM
--- NOTE | 2023-03-08 07:46 | Progress Notes ---
SUBJECTIVE: A 22-year-old female postoperative day 1 from I and D of a grade II open tib-fib fractur e and IM nailing. She is doing much better this morning. Having some pain, but much improved. No c hest pain or shortness of breath. Not feeling dizzy or lightheaded. No other complaints. OBJECTIVE: VITAL SIGNS: Temperature 36.5. Vital signs are stable. GENERAL: Physical examination shows a pleasant 22-year-old female. She is lying in bed and looks mu ch better this morning. LUNGS: Clear to auscultation. HEART: Regular rate and rhythm. ABDOMEN: Soft, nontender, nondistended. EXTREMITIES: Grossly neurovascularly intact except as follows. Examination of the right leg reveals the dressing to be clean, dry and intact. Her leg is elevated. She can flex and extend her toes wi th some mild discomfort. Minimal pain with passive stretch. She has got brisk refill. ASSESSMENT: A 22-year-old female postoperative day 1 from irrigation and debridement of an open tib- fib fracture and IM nailing, doing well. Pain is reasonably well controlled. She is neurologically intact. No signs of compartment issues. PLAN: 1. DVT prophylaxis includes thigh-high TEDs, SCDs, and aspirin twice a day. 2. PT/OT. She is strictly nonweightbearing. We will start some crutching training. 3. IV antibiotics x48 hours. We are going to keep her in the hospital today for IV antibiotics. 4. Disposition: Plan to discharge to home with family likely tomorrow after therapy. Job ID: [id number]
[2023-03-08] MEDS: ASPIRIN 81 MG ECTAB PO SCH ×2 (08:16→21:05)
[2023-03-08] MEDS: DOCUSATE SODIUM 100 MG CAP PO SCH ×2 (08:16→21:05)
[2023-03-08] MEDS: MULTIVITAMIN TAB PO SCH (08:16)
[2023-03-08 09:06] LABS: Creatinine Clr Calc Pharmacy 121.6 ml/min; Est GFR (African American) 148.3 ml/min
[2023-03-08] MEDS: HYDROmorphone INJ 0.5 MG/0.5 ML SYR IV PRN ×2 (11:55→19:34)
--- NOTE | 2023-03-08 12:43 | Pharmacy Report ---
Pharmacy PK ABX Note - Date of Service March 08, 2023 - Assessment and Plan Assessment 22 year postop irrigation/debridement of an open tib-fib fracture. Patient started on gentamicin and ancef empirically. Plan Gentamicin * Patient given gentamicin 80 mg preop 03/07 at 2000 + gentamicin 300 mg x 1 03/08 at 0000 (make total dose of 380 mg ~7 mg/kg adjusted body weight) * Random gentamicin level collected ~8-10 hours after dose and level was 1.86. Based upon [facility] Nomogram, dosing is appropriate for Q24 hour interval * Plan to continue current regimen for now. Per notes, patient likely to be discharged tomorrow Pharmacy will continue to follow and will adjust dose/frequency as necessary. Thank you.
[2023-03-08] MEDS ORDERED: SENNA 8.6 MG TAB PO SCH (21:00)
[2023-03-09] MEDS ORDERED: GENTAMICIN SULFATE 380 MG in DEXTROSE 5% 100 ML IV SCH
[2023-03-09] MEDS: HYDROmorphone INJ 0.5 MG/0.5 ML SYR IV PRN (00:05)
[2023-03-09] MEDS: ceFAZolin 1000MG 1,000 MG/7.5 ML SYR IV SCH ×2 (01:40→10:24)
[2023-03-09] MEDS: KETOROLAC 30 MG/ML VIAL IV SCH ×2 (04:10→10:24)
[2023-03-09] MEDS: ACETAMINOPHEN 500 MG TAB PO SCH (05:42)
[2023-03-09] MEDS: oxyCODONE HCL IR 5 MG TAB (IMMEDIATE RELEASE) PO PRN (05:42)
[2023-03-09 07:36] LABS: Creatinine Clr Calc Pharmacy 112.5 ml/min; Est GFR (African American) 144.6 ml/min; Est GFR (Non-African American) 124.8 ml/min
--- NOTE | 2023-03-09 08:14 | Progress Notes ---
SUBJECTIVE: A 22-year-old female, postoperative day 2 from IM nailing and I and D of an open tib-fib fracture. She is doing quite a bit better this morning. Pain is improved. Looks lot more comforta ble. No new complaints. OBJECTIVE: VITAL SIGNS: Temperature 36.9. Vital signs are stable. GENERAL: Shows a pleasant 22-year-old female. She is lying in bed and looks much more comfortable t his morning. EXTREMITIES: Examination of the right leg reveals the splint to be in place. Dressing is clean, dry and intact. She can flex and extend her toes quite well without much pain. She is neurologically i ntact. ASSESSMENT: A 22-year-old female, postoperative day 2 from intramedullary nailing of an open tibia-f ibula fracture with an incision and drainage as well. She is doing pretty well. Pain is improved. She is neurologically intact. No compartment issues. PLAN: 1. DVT prophylaxis includes thigh-high TEDs, SCDs, and aspirin twice a day. 2. PT/OT. She is nonweightbearing on right leg for the first 2 weeks. 3. Pain control, doing okay with current pain regimen. 4. Disposition: Plan to discharge to home later today. Job ID: [id number]
[2023-03-09] MEDS: ASPIRIN 81 MG ECTAB PO SCH (08:47)
[2023-03-09] MEDS: DOCUSATE SODIUM 100 MG CAP PO SCH (08:47)
[2023-03-09] MEDS: MULTIVITAMIN TAB PO SCH (08:47)
--- NOTE | 2023-03-14 07:53 | Discharge Summary ---
Date of Service March 14, 2023 Discharge Data Procedures Performed Operation Date: 03/07/23 19:00 Actual Procedures p Right Intramedullary Nail Tibia(Right) - You Chu MD Hospital Course (1) Tibia and fibula open fracture, right: This is a 22 year old patient admitted on 03/07/23 and underwent I and D/IM nailing of an open tib/fib fracture. She tolerated the procedure well and there were no complications. Transferred to the PACU post op and later to the orthopedic floor for further care. She was given ancef and gentamycin for antibiotic prophylaxis. She was also given MELISSA stockings, SCDs, and aspirin for DVT prophylaxis. Hemoglobin, hematocrit, and vital signs were monitored during her hospital stay and remained stable. Did not require any blood transfusions. There were no complications during her hospital stay. By post op day #2 the patient was tolerating a regular diet, pain was reasonably controlled with oral pain medicine, and she was participating in physical therapy. On post op day #2 the patient was discharged home. She was given printed discharge instructions including prescriptions for extra strength tylenol, aspirin, cefadroxil, zofran, and oxycodone. Continue nonweightbearing on the right lower extremity . Follow up approximately 2 weeks post op or sooner if there are problems or concerns. Coding Level of Care Code None Diagnoses Tibia and fibula open fracture, right S82.201B; S82.401B
== END 2023-03-09 12:13 | disposition home or self-care (01) | DRG 494 ==
LOC: ED 17:24 → OR 18:27 → 3W 18:27